=== PATIENT | female | born 1940 | race Caucasian/White ===

== ENCOUNTER 2022-05-13 13:56 | Outpatient (CLI) | payer MEDICARE, BC | END 2022-05-13 13:57 | disposition home or self-care (01) | LOC: CSHMRI 13:56 | PROVIDERS: ATTEND Specialist | DX: M80.08XA Age-related osteoporosis with current pathological fracture, vertebra(e), initial encounter for fracture (principal); S32.000A Wedge compression fracture of unspecified lumbar vertebra, initial encounter for closed fracture; Z98.890 Other specified postprocedural states | CPT/HCPCS: 72148 ==

== ENCOUNTER 2023-07-06 10:59 | Emergency (ER) | payer MEDICARE, BC ==
[2023-07-06] MEDS ORDERED: HYDROcodone/Acetaminophen 5/325 mg Tablet ONE (12:54)
== END 2023-07-06 12:49 | disposition home or self-care (01) ==
LOC: CSHERS 10:59
DX: S42.291A Other displaced fracture of upper end of right humerus, initial encounter for closed fracture (principal); E03.9 Hypothyroidism, unspecified; K21.9 Gastro-esophageal reflux disease without esophagitis; E78.00 Pure hypercholesterolemia, unspecified; I10 Essential (primary) hypertension; W18.39XA Other fall on same level, initial encounter
CPT/HCPCS: 70450; 71045; 72125; 72170